=== PATIENT | male | born 1955 | race Caucasian/White ===

== ENCOUNTER → 2023-12-30 08:05 | Outpatient (CLI) | payer MEDICARE, OTHER, SELFPAY ==
[2023-12-30 08:48] LABS: HEMOLYSIS < 15 (0-50); Potassium 4.9 mmol/L (3.4-5.1)
== END ==
PROVIDERS: PCP Internal Medicine; Referring Provider Internal Medicine; Visit Provider Internal Medicine
DX: E87.5 Hyperkalemia (principal)
CPT/HCPCS: 36415; 84132

== ENCOUNTER → 2024-01-20 10:58 | Outpatient (CLI) | payer MEDICARE, OTHER, SELFPAY ==
--- NOTE | 2024-01-20 11:00 | DI.RAD.S_ITS ---
PROCEDURE: XR KUB INDICATIONS: 12/18 right flank pain, UA with Blo+ TECHNIQUE: One view of the abdomen acquired. COMPARISON: None. FINDINGS: The left renal shadow appears decreased in size measures approximately 8.5 cm in CC dimension may represent left renal atrophy. Possible 2 mm round calcification, nonobstructing renal calculus superior pole left kidney versus artifact or other mesenteric or soft tissue calcification. The right kidney is obscured by overlying bowel gas. Moderate degenerative changes lower thoracic, lumbar spine and hips. Surgical changes and devices: None. Bowel: Bowel gas pattern is normal. IMPRESSION: The left renal shadow decreased in size as discussed above. Possible 2 mm round calcification, nonobstructing renal calculus superior pole left kidney as discussed above. The right kidney is obscured by overlying bowel gas. If symptoms persist or worsen, or there is high clinical suspicion of renal, ureteral or bladder abnormality, CT abdomen/pelvis could be performed. Dictated by: Ryan Bates M.D. on 01/20/2024 at 17:43 Approved by: Ryan Bates M.D. on 01/20/2024 at 17:46
--- NOTE | 2024-01-20 11:00 | DI.RAD.S_ITS ---
PROCEDURE: XR LUMBAR SPINE 2-3V INDICATIONS: 12/18 right lumbar pain TECHNIQUE: 3 views of the lumbar spine were acquired. COMPARISON: None. FINDINGS: Moderate degenerative changes of the lumbar spine with disc space narrowing, osteophytes and facet hypertrophic changes most notably at L3-4, L4-5 and L5-S1. Mild decreased height with anterior wedging of L1, L2 and to a lesser degree L3 commonly may be related to subtle chronic compression fractures although age indeterminate on x-ray. Minimal levoscoliosis some which may be artifact from positioning. Moderate degenerative changes of the bilateral hips partially imaged with joint space narrowing and osteophytes. Mild degenerative changes of the bilateral sacroiliac joints. Moderate calcifications of the aorta and iliac vessels partially imaged. No radiographic evidence of subluxation. Five [id number] vertebrae are present. IMPRESSION: Moderate degenerative changes most notably at L3-4, L4-5 and L5-S1. Mild decreased height with anterior wedging of L1, L2 and L3 commonly may be related to subtle chronic compression fractures as discussed above. Moderate degenerative changes of the bilateral hips. Mild degenerative changes of the bilateral sacroiliac joints. Moderate calcifications of the aorta and iliac vessels. If symptoms persist or worsen, or there is high clinical suspicion of acute lumbosacral abnormality, CT or MRI could be performed. Dictated by: Ryan Bates M.D. on 01/20/2024 at 13:55 Approved by: Ryan Bates M.D. on 01/20/2024 at 14:01
== END ==
PROVIDERS: PCP Internal Medicine; Referring Provider Physician Assistant; Visit Provider Physician Assistant
DX: S39.92XA Unspecified injury of lower back, initial encounter (principal); M47.816 Spondylosis without myelopathy or radiculopathy, lumbar region; M47.817 Spondylosis without myelopathy or radiculopathy, lumbosacral region; M47.818 Spondylosis without myelopathy or radiculopathy, sacral and sacrococcygeal region; I70.0 Atherosclerosis of aorta; R10.9 Unspecified abdominal pain; X58.XXXA Exposure to other specified factors, initial encounter
CPT/HCPCS: 72100; 74018

== ENCOUNTER → 2024-01-21 10:12 | Outpatient (CLI) | payer MEDICARE, OTHER, SELFPAY ==
[2024-01-21 11:37] LABS: Alanine Aminotransferase 20 IU/L (<50); Albumin Globulin Ratio 1.4 (1.0-2.8); Alkaline Phosphatase 82 U/L (38-126); Aspartate Aminotransferase 26 IU/L (17-59); Bilirubin Total 0.7 mg/dL (0.2-1.3); Blood Urea Nitrogen 16 mg/dL (9-20); Calcium 9.9 mg/dL (8.4-10.2); Carbon Dioxide 30 mmol/L (22-32); Chloride 102 mmol/L (98-107); Estimated Glomerular Filt Rate > 60 mL/min (>60); Globulin 2.8 g/dL (1.7-4.1); Glucose 119 mg/dL (80-110); HEMOLYSIS < 15 (0-50); Potassium 5.2 mmol/L (3.4-5.1); Sodium 137 mmol/L (137-145); Total Protein 6.8 g/dL (6.3-8.2)
== END ==
PROVIDERS: PCP Internal Medicine; Referring Provider Physician Assistant; Visit Provider Physician Assistant
DX: R10.9 Unspecified abdominal pain (principal)
CPT/HCPCS: 36415; 80053

== ENCOUNTER 2024-01-22 09:16 | Emergency (ER) | payer MEDICARE, OTHER, SELFPAY ==
[2024-01-22 09:27] VITALS: BP 190/90; PULSE 56; RESP 18; TEMP 36.9; O2SAT 99; BMI 31.5
--- NOTE | 2024-01-22 11:41 | DI.CT.S_ITS ---
PROCEDURE: CT KIDNEY URETER BLADDER (KUB) INDICATIONS: flank pain TECHNIQUE: Axial sections were acquired from the lung bases to the pubic symphysis. Coronal and sagittal reformats were performed. For radiation dose reduction, the following was used: automated exposure control, adjustment of mA and/or kV according to patient size. COMPARISON: None. FINDINGS: Image quality: Diagnostic. Lower Chest: Cardiomegaly. URINARY: Right Kidney: No stones or hydronephrosis. Right Ureter: No hydroureter. Left Kidney: No stones or hydronephrosis. Left Ureter: No hydroureter. Bladder: Normal wall thickness. No stones. ABDOMEN: Liver: Hepatic cyst at the liver dome . Additional subcentimeter hypoattenuating lesions, too small to characterize by CT. Gallbladder: Gallbladder sludge versus small stones. No wall thickening or pericholecystic edema to suggest acute cholecystitis. Biliary ducts: No biliary dilation. Pancreas: No ductal dilation. Spleen: Size is within normal limits. Adrenal Glands: No adrenal nodules. Stomach and Bowel: Normal colonic caliber, without significant wall thickening. Appendix not identified, but there is no pericecal fat stranding to suggest appendicitis. Colonic diverticulosis without evidence of diverticulitis. Peritoneum: No abnormal intraperitoneal fluid. No free air. Ventral Wall: No hernia. Abdominal Nodes: No enlarged retroperitoneal or mesenteric lymph nodes. Vessels: Aorta and inferior vena cava are normal in size. PELVIS: Pelvic Organs: Unremarkable. Pelvic Nodes: Unremarkable. Miscellaneous: No inguinal hernias are seen. Bones: Unremarkable. IMPRESSION: No obstructing stones or hydronephrosis. No evidence of acute cholecystitis. Appendix not identified, but there is no pericecal fat stranding to suggest appendicitis. Dictated by: Brandon Vázquez M.D. on 01/22/2024 at 12:27 Approved by: Brandon Vázquez M.D. on 01/22/2024 at 12:31
[2024-01-22] MEDS: KETOROLAC 30 MG/ML VIAL 15 MG IV (11:48)
[2024-01-22 11:52] LABS: Add Manual Diff / Slide Review NO; Basophils Absolute Auto 100 /uL (0-100); Basophils Percent Auto 1.2 % (0-2); Eosinophils Absolute Auto 100 /uL (0-450); Eosinophils Percent Auto 1.5 % (2-4); Hematocrit 46.4 % (41-53); Hemoglobin 15.9 g/dL (13.5-17.5); Lymphocytes Absolute Auto 2400 /uL (1100-4500); Lymphocytes Percent Auto 26.1 % (25-40); Mean Corpuscular HGB Conc 34.4 % (30-36); Mean Corpuscular Hemoglobin 29.5 PG (26-34); Mean Corpuscular Volume 85.9 fL (80-100); Monocytes Absolute Auto 800 /uL (0-900); Monocytes Percent Auto 8.8 % (3-14); Neutrophils Absolute Auto 5600 /uL (1500-7000); Neutrophils Percent Auto 62.4 % (50-75); Platelet Count 219 X10^3/uL (150-400); Red Cell Distribution Width 14.7 % (11.6-14.8)
[2024-01-22 12:08] LABS: INR 1.1 (0.9-1.3); Prothrombin Time 12.7 SECONDS (9.4-12.5)
[2024-01-22 12:13] LABS: Appearance Urine UA CLEAR; Bilirubin Urine UA NEGATIVE (NEGATIVE); Color Urine UA YELLOW; Glucose Urine UA NEGATIVE (Negative); Ketones Urine UA NEGATIVE (NEGATIVE); Leukocyte Esterase Urine UA NEGATIVE (NEGATIVE); Nitrite Urine UA NEGATIVE (Negative); Occult Blood Urine UA TRACE-INTACT (Negative); Protein Urine UA NEGATIVE (Negative); Specific Gravity Urine UA <=1.005 (1.000-1.035); Urobilinogen Urine UA 0.2 E.U./dL (0.2); pH Urine UA 5.5 (4.5-8.0)
[2024-01-22 12:14] LABS: Alanine Aminotransferase 25 IU/L (<50); Albumin 4.6 g/dL (3.5-5.0); Albumin Globulin Ratio 1.4 (1.0-2.8); Alkaline Phosphatase 89 U/L (38-126); Aspartate Aminotransferase 31 IU/L (17-59); Bilirubin Total 1.2 mg/dL (0.2-1.3); Blood Urea Nitrogen 14 mg/dL (9-20); Calcium 9.9 mg/dL (8.4-10.2); Carbon Dioxide 27 mmol/L (22-32); Chloride 101 mmol/L (98-107); Estimated Glomerular Filt Rate > 60 mL/min (>60); Globulin 3.3 g/dL (1.7-4.1); Glucose 101 mg/dL (80-110); HEMOLYSIS < 15 (0-50); Lipase 68 U/L (23-300); Potassium 4.1 mmol/L (3.4-5.1); Sodium 138 mmol/L (137-145); Total Protein 7.9 g/dL (6.3-8.2)
[2024-01-22 12:16] LABS: Urine Volume 10mL (spun)
[2024-01-22 12:19] LABS: Bacteria Urine None Seen; Culture Indicated Urine Cult Not Indicated; RBC Urine 0-1/HPF (0-5/HPF); Squamous Epithelial Cell Urine 0-1 /HPF (0-5/HPF); WBC Urine None Seen (0-5/HPF)
--- NOTE | 2024-01-22 12:43 | ED.MALEGU ---
HPI - Male Genitourinary General Chief complaint: Urogenital-Male Stated complaint: possible kidney stone Time Seen by Provider: 01/22/24 12:43 History of Present Illness HPI Narrative: Patient 68-year-old male history of hyperlipidemia BPH presenting today with ongoing right-sided back. He denies any injuries been ongoing for the last 5 days. He is sometimes has pain going down to leg. He denies any testicular pain. No nausea or vomiting. He was seen in the walk-in clinic January 18 and January 19 given Flexeril and meloxicam. He really says that he has been sleeping a lot no significant improvement in pain. No nausea or vomiting. Related Data Home Medications Medication Instructions Recorded Confirmed alfuzosin 10 mg tablet,extended 10 mg PO DAILY 01/19/24 01/20/24 release 24 hr atorvastatin 10 mg tablet 10 mg PO DAILY 01/19/24 01/20/24 finasteride 5 mg tablet 5 mg PO DAILY 01/19/24 01/20/24 Previous Rx's Medication Instructions Recorded cyclobenzaprine 5 mg tablet 5 mg PO TID PRN muscle spasm #20 01/19/24 tabs cyclobenzaprine 10 mg tablet 10 mg PO TID PRN muscle spasm #30 01/20/24 tabs ibuprofen 800 mg tablet 800 mg PO TID PRN pain #30 tabs 01/20/24 omeprazole 20 mg capsule,delayed 20 mg PO DAILY #14 caps 01/20/24 release meloxicam 15 mg tablet 7 - 15 mg (0.4667 - 1 x 15 mg) PO 01/21/24 DAILY #30 tabs hydrocodone 5 mg-acetaminophen 325 1 tab PO Q6H PRN pain #10 tabs 01/22/24 mg tablet meloxicam 15 mg tablet 15 mg PO DAILY PRN pain #20 tabs 01/22/24 methocarbamol 750 mg tablet 1,500 mg (2 x 750 mg) PO Q8H PRN 01/22/24 muscle spasm #20 tabs Allergies Allergy/AdvReac Type Severity Reaction Status Date / Time Penicillins Allergy Unknown Verified 01/19/24 10:59 Patient History Social History Smoking Status: Never smoker Smoking Status: Never smoker alcohol intake frequency: 0-2 drinks per day Substance Use Type: does not use Exam Initial Vital Signs Initial Vital Signs: Vital Signs Temperature 98.4 F 01/22/24 09:27 Pulse Rate 56 L 01/22/24 09:27 Respiratory Rate 18 01/22/24 09:27 Blood Pressure 190/90 H 01/22/24 09:27 Pulse Oximetry 99 01/22/24 09:27 Oxygen Delivery Method Room Air 01/22/24 09:27 GENERAL: Alert well-appearing 68-year-old male HEENT: Head atraumatic,EOMI, pupils reactive, face symmetric, moist mucous membranes CARDIOVASCULAR: Regular rate and rhythm without murmurs, rubs or gallops. RESPIRATORY: Breath sounds equal bilaterally, no wheezes rales or rhonchi. ABDOMEN: Soft, nontender. Normoactive bowel sounds all 4 quadrants. No guarding or rebound. BACK: No vertebral tenderness no step-off. Right lower lumbar pain over iliac crest tender to palpation reproducible to touch : No CVA tenderness EXTREMITIES: Normal range of motion, no clubbing or edema. Neurovascularly intact NEUROLOGICAL: Alert and oriented x4.Normal gait and speech. SKIN: Warm, dry, no laceration, no petechiae, no rashes or lesions. Course Orders Ordered: ED Orders 01/22/24 11:35 Urinalysis and Microscopic Stat 01/22/24 11:41 CT kidney ureter bladder (KUB) Stat 01/22/24 11:42 Complete Blood Count AUTO DIFF Stat Comprehensive Metabolic Panel Stat Lipase Stat Prothrombin Time INR Stat Discontinued Medications Ketorolac Tromethamine (Ketorolac 30 Mg/Ml Vial) 15 mg IV NOW ONE Stop: 01/22/24 10:33 Last Admin: 01/22/24 11:48 Dose: 15 mg Documented By: ES Ondansetron HCl (Ondansetron 4 Mg/2 Ml Inj) 4 mg IV NOW PRN PRN Reason: Nausea And Vomiting Ondansetron HCl (Ondansetron 4 Mg Odt) 4 mg PO NOW PRN PRN Reason: Nausea And Vomiting Vital Signs Vital signs: Vital Signs - 8 hr 01/22/24 13:00 Pulse Rate 44 L Respiratory Rate 16 Blood Pressure 143/92 H Pulse Oximetry 92 Oxygen Delivery Method Room Air MDM - Male Genitourinary Lab Data 01/22/24 11:42 01/22/24 11:42 Labs: Lab Results 01/22/24 01/22/24 Range/Units 11:35 11:42 WBC 9.0 (4.5-11.0) X10^3/uL RBC 5.40 (4.5-5.9) X10^6/uL Hgb 15.9 (13.5-17.5) g/dL Hct 46.4 (41-53) % MCV 85.9 (80-100) fL MCH 29.5 (26-34) PG MCHC 34.4 (30-36) % RDW 14.7 (11.6-14.8) % Plt Count 219 (150-400) X10^3/uL Neut % (Auto) 62.4 (50-75) % Lymph % (Auto) 26.1 (25-40) % [place] % (Auto) 8.8 (3-14) % Eos % (Auto) 1.5 L (2-4) % Baso % (Auto) 1.2 (0-2) % Neut # (Auto) 5600 (4703-2364) /uL Lymph # (Auto) 2400 (6352-1436) /uL [place] # (Auto) 800 (0-900) /uL Eos # (Auto) 100 (0-450) /uL Baso # (Auto) 100 (0-100) /uL PT 12.7 H (9.4-12.5) SECONDS INR 1.1 (0.9-1.3) Sodium 138 (137-145) mmol/L Potassium 4.1 (3.4-5.1) mmol/L Chloride 101 (98-107) mmol/L Carbon Dioxide 27 (22-32) mmol/L BUN 14 (9-20) mg/dL Creatinine 1.00 (0.66-1.25) mg/dL Estimated GFR > 60 (>60) mL/min BUN/Creatinine Ratio 14.0 (6-22) Glucose 101 (80-110) mg/dL Calcium 9.9 (8.4-10.2) mg/dL Total Bilirubin 1.2 (0.2-1.3) mg/dL AST 31 (17-59) IU/L ALT 25 (<50) IU/L Alkaline Phosphatase 89 (38-126) U/L Total Protein 7.9 (6.3-8.2) g/dL Albumin 4.6 (3.5-5.0) g/dL Globulin 3.3 (1.7-4.1) g/dL Albumin/Globulin Ratio 1.4 (1.0-2.8) Lipase 68 (23-300) U/L Urine Color Yellow Urine Appearance Clear Urine pH 5.5 (4.5-8.0) Ur Specific [place] <=1.005 (1.000-1.035) Urine Protein Negative (Negative) Urine Glucose (UA) Negative (Negative) g/dL Urine Ketones Negative (NEGATIVE) Urine Occult Blood Trace-intact (Negative) Urine Nitrate Negative (Negative) Urine Bilirubin Negative (NEGATIVE) Urine Urobilinogen 0.2 (0.2) E.U./dL Ur Leukocyte Esterase Negative (NEGATIVE) Urine RBC 0-1/hpf (0-5/HPF) Urine WBC None seen (0-5/HPF) Ur Squamous Epith Cells 0-1 /hpf (0-5/HPF) Urine Bacteria None seen (None) Ur Culture Indicated? Cult not indicated Vol Urine Centrifuged 10ml (spun) Urine Dip Bedside Urine Glucose Negative Bedside Urine Bilirubin - Negative Bedside Urine Ketone - Negative Urine Specific [place] 1.005 Bedside Urine Occult Blood +/- Bedside Urine pH 6.0 Bedside Urine Protein - Negative Bedside Urine Urobilinogen - Negative Bedside Urine Nitrite - Negative Bedside Urine Leukocytes - Negative Esterase Imaging Data CT scan - abdomen/pelvis: Radiologist's Impression: PROCEDURE: CT KIDNEY URETER BLADDER (KUB) INDICATIONS: flank pain TECHNIQUE: Axial sections were acquired from the lung bases to the pubic symphysis. Coronal and sagittal reformats were performed. For radiation dose reduction, the following was used: automated exposure control, adjustment of mA and/or kV according to patient size. COMPARISON: None. FINDINGS: Image quality: Diagnostic. Lower Chest: Cardiomegaly. URINARY: Right Kidney: No stones or hydronephrosis. Right Ureter: No hydroureter. Left Kidney: No stones or hydronephrosis. Left Ureter: No hydroureter. Bladder: Normal wall thickness. No stones. ABDOMEN: Liver: Hepatic cyst at the liver dome . Additional subcentimeter hypoattenuating lesions, too small to characterize by CT. Gallbladder: Gallbladder sludge versus small stones. No wall thickening or pericholecystic edema to suggest acute cholecystitis. Biliary ducts: No biliary dilation. Pancreas: No ductal dilation. Spleen: Size is within normal limits. Adrenal Glands: No adrenal nodules. Stomach and Bowel: Normal colonic caliber, without significant wall thickening. Appendix not identified, but there is no pericecal fat stranding to suggest appendicitis. Colonic diverticulosis without evidence of diverticulitis. Peritoneum: No abnormal intraperitoneal fluid. No free air. Ventral Wall: No hernia. Abdominal Nodes: No enlarged retroperitoneal or mesenteric lymph nodes. Vessels: Aorta and inferior vena cava are normal in size. PELVIS: Pelvic Organs: Unremarkable. Pelvic Nodes: Unremarkable. Miscellaneous: No inguinal hernias are seen. Bones: Unremarkable. IMPRESSION: No obstructing stones or hydronephrosis. No evidence of acute cholecystitis. Appendix not identified, but there is no pericecal fat stranding to suggest appendicitis. Dictated by: Brandon Vázquez M.D. on 01/22/2024 at 12:27 MDM Narrative Medical decision making narrative: Patient is 68-year-old male presenting today with ongoing right lower lumbar pain. It does radiate down to his leg most consistent with a musculoskeletal sciatic like pain. However he has been to the walk-in clinic twice already not getting any better. He has not have any sort of testicular pain no concern for testicular torsion. CT for kidney stone was negative Blood work overall reassuring without leukocytosis anemia or LARRY Urinalysis does not show any evidence of UTI Patient received Toradol no significant improvement Pain is reproducible to touch or tingling down his leg I do think this is musculoskeletal. He has ruled out for kidney stone I have low concern for dissection and testicular etiology. Discussed pain management at home along with follow-up possible outpatient physical therapy and possible outpatient MRI. Also discussed when to return to ED Discharge Plan Departure Patient Disposition: Home Clinical Impression: Low back pain Instructions: DI for Low Back Pain Activity Restrictions/Additional Instructions: *You have been diagnosed with low back pain *What to do: Symptoms today are consistent with a low back strain and possible sciatica. You may require physical therapy and possibly an outpatient MRI if symptoms continue. I recommend light activity no strenuous activity or heavy lifting *Continue to take medications as directed Meloxicam 15 mg once a day do not combine with other NSAIDs such as ibuprofen Motrin or Methocarbamol 750-1500 mg 2-3 times daily as needed for muscle spasm [place] 1 tablet every 6 hours if needed for [id number] pain *Follow up with your primary care provider in 2-3 days or call [phone] *Return to ER if you should have increasing leg weakness numbness loss of urine or any new, worsening or concerning symptoms CONTROLLED SUBSTANCE DISCHARGE (Narcotoic/benzodiazepine/Flexeril/Phenergan) 1. You have been prescribed narcotic medications, it does have acetaminophen/Tylenol/paracetamol in it, DO NOT TAKE MORE THAN 4,00mg in 24 hours of Tylenol. TRAMADOL DOES NOT CONTAIN TYLENOL 2. Please understand that we cannot provide further refills of narcotics, benzodiazepines or controlled substances through the ED and her pain management will need to be through your provider. 3. While on these medications you cannot drive or operate heavy machinery. 4. You cannot sign legal documents or perform any duties such as this. 5. As long as you're taking opiate pain medications he should also be taking a stool softener such as Colace, Dulcolax, MiraLAX or prune juice, to help avoid constipation. Prescriptions: New methocarbamol 750 mg tablet 1,500 mg PO Q8H PRN (Reason: muscle spasm) Qty: 20 0RF hydrocodone-acetaminophen 5-325 mg tablet 1 tab PO Q6H PRN (Reason: pain) Qty: 10 0RF meloxicam 15 mg tablet 15 mg PO DAILY PRN (Reason: pain) Qty: 20 0RF No Action alfuzosin 10 mg tablet extended release 24 hr 10 mg PO DAILY finasteride 5 mg tablet 5 mg PO DAILY atorvastatin 10 mg tablet 10 mg PO DAILY cyclobenzaprine 5 mg tablet 5 mg PO TID PRN (Reason: muscle spasm) Qty: 20 0RF ibuprofen 800 mg tablet 800 mg PO TID PRN (Reason: pain) Qty: 30 0RF omeprazole 20 mg capsule,delayed release(DR/EC) 20 mg PO DAILY Qty: 14 0RF Rx Instructions: Take with high dose ibuprofen cyclobenzaprine 10 mg tablet 10 mg PO TID PRN (Reason: muscle spasm) Qty: 30 0RF meloxicam 15 mg tablet 7 - 15 mg PO DAILY Qty: 30 0RF Rx Instructions: do not combine with other NSAIDS Referrals: Valentin Grace MD [Primary Care Provider] - Stand Alone Forms: Patient Portal/API
[2024-01-22 13:00] VITALS: BP 143/92; PULSE 44; RESP 16; O2SAT 92
== END 2024-01-22 13:15 | disposition home or self-care (01) ==
PROVIDERS: Emergency Provider Emergency Medicine; PCP Internal Medicine
DX: M54.50 Low back pain, unspecified (principal)
CPT/HCPCS: 36415; 51798; 74176; 80053; 81001; 81003; 83690; 85025; 85610; 96374; 99284; J1885